=== PATIENT | female | born 1985 ===

== ENCOUNTER 2017-05-27 23:52 | Inpatient (IN) | payer OTHER ==
[2017-05-28 00:30] VITALS: BMI 26.9
[2017-05-28] MEDS ORDERED: Zolpidem Tartrate 5 MG TAB PO PRN (00:47)
[2017-05-28] MEDS ORDERED: LR / Pitocin 40 units/1000 ml 1,000 ML IV PRN (00:47)
[2017-05-28] MEDS ORDERED: Acetaminophen/Codeine 30-300mg Tablet PO PRN (00:47)
[2017-05-28] MEDS ORDERED: Ondansetron HCl/PF 4 MG/2 ML Vial IVP PRN ×2 (00:47→02:44)
[2017-05-28] MEDS ORDERED: Promethazine HCl 25 MG/ML VIAL IM PRN ×2 (00:47→02:44)
[2017-05-28] MEDS ORDERED: Docusate 100 MG CAP PO PRN (00:47)
[2017-05-28] MEDS ORDERED: Lidocaine 1% (PF) 30 ML VIAL SC PRN (00:47)
[2017-05-28] MEDS: Lactated Ringer's 1,000 ML IV SCH ×3 (01:00→08:08)
[2017-05-28 01:25] LABS: Hemoglobin 11.7 g/dL (12.0-16.0); Mean Corpuscular Hemoglobin 30.7 pg (27.0-31.0); Mean Corpuscular Volume 90.2 fl (81.0-99.0); Mean Platelet Volume 7.5 fL (7.4-10.4); Platelet Count 220 thou/uL (130-400); RBC Distribution Width 12.9 % (11.5-14.5); Red Blood Cell (RBC) Count 3.82 mill/uL (4.20-5.40); White Blood Cell (WBC) Count 15.1 thou/uL (4.8-10.8)
[2017-05-28] MEDS ORDERED: Naloxone HCl 0.4 mg/ml Vial IV PRN (01:28)
[2017-05-28 01:56] LABS: HBSAg Index 0.27 S/CO (0-0.99); Hep B Surf Ag Non-Reactive S/CO (NonReactive)
[2017-05-28] MEDS ORDERED: diphenhydrAMINE 50 MG/ML VIAL IVP PRN (02:44)
[2017-05-28] MEDS ORDERED: ePHEDrine/0.9% NaCl/PF SYRINGE 50 mg/10 ml SLOW IVP PRN (02:44)
[2017-05-28] MEDS ORDERED: Lactated Ringer's 500 ML IV PRN (02:44)
[2017-05-28] MEDS ORDERED: Naloxone HCl 0.4 mg/ml Vial IVP PRN ×2 (02:44)
[2017-05-28] MEDS ORDERED: Eucerin (Mineral Oil/Petrolatum,White) 30 gm Jar TOP PRN (02:44)
[2017-05-28] MEDS ORDERED: Acetaminophen 325 MG TAB PO PRN (02:44)
[2017-05-28] MEDS ORDERED: Fentanyl 4mcg/Marcaine 0.1% Cassette 100 ML EPIDURAL SCH (02:45)
[2017-05-28] MEDS ORDERED: Communication Order-Pharmacy FS SCH (02:45)
[2017-05-28] MEDS: Fentanyl 4 mcg/Marc 0.1% Cadd 100 ML in Premix Bag 1 BAG EPIDURAL SCH ×2 (03:55→08:03)
--- NOTE | 2017-05-28 04:09 | HP ---
ESTABLISHED OB PHYSICIAN: Dr. Aviva Ness. CHIEF COMPLAINT: Ruptured membranes with contractions. HISTORY OF PRESENT ILLNESS: Ms. Damon is a 31-year-old white G4, P2-0-1-2 with an estimated date o f confinement of 05/30/2017, who presents to labor and delivery tonight complaining of ruptured membr anes at approximately 10:45. She reports that the fluid is clear. She also now is experiencing asso ciated contractions, which she says are every 5-7 minutes. She denies vaginal bleeding, fever, chill s, nausea or vomiting. OBSTETRIC HISTORY: Her care has been uncomplicated with Dr. Ness. She has had 2 vaginal deliverie s, both weighing 7 pounds 15 ounces. She has also had a single 7-week loss. Her care of th is has been uncomplicated. PAST MEDICAL HISTORY: Unremarkable. PAST SURGICAL HISTORY: [place] teeth. SOCIAL HISTORY: She denies tobacco, alcohol, or drug use. REVIEW OF SYSTEMS: GENERAL: She appears well in no acute distress. She denies shortness of breath, chest pain, fever, chills, nausea or vomiting. PHYSICAL EXAMINATION: VITAL SIGNS: Stable and she is afebrile. LUNGS: Her chest is clear to auscultation. CARDIOVASCULAR: Regular rate and rhythm. ABDOMEN: Soft, nontender and gravid. PELVIC: By labor nurse shows the cervix to be 5 cm dilated. She is grossly ruptured. heart r ate tracing shows stable heart rate with good [id number] variability. She is brandt laura ry 5-7 minutes. ASSESSMENT: Term intrauterine with ruptured membranes in labor. PLAN: At this time, I have notified Dr. Ness of the patient's situation here in labor and delivery . She will be monitored for progress at this time. She would like an epidural and we will help her with this. Vaginal delivery is anticipated. She will be watched closely.
[2017-05-28 07:01] LABS: Syphilis Antibody Nonreactive (Nonreactive); Syphilis Antibody Index 0.03 S/CO (<1.00 Non-Reactive)
[2017-05-28] MEDS ORDERED: Bupivacaine 20 ML, Fentanyl 400 MCG in Sodium Chloride 0.9% 72 ML EPIDURAL SCH (07:30)
[2017-05-28] MEDS ORDERED: LR 500 ML/Oxytocin 10 units 500 ML ONE (08:15)
--- NOTE | 2017-05-28 09:34 | PDOC.OPDEL ---
OB Operative/Delivery Note Delivery Dr/Surgeon: Thi Pre-Delivery Diagnosis: active labor Procedure/Post Delivery Dx: spontaneous vaginal delivery Weeks gestation: 39 Anesthesia: epidural - Findings A Sex: male - 1 min: 8 - 5 min: 9 - Additional Findings/Plan Placenta delivered: spontaneous Repaired Obstetrical Laceration: none Estimated blood loss: 200ml Compilations/Other Findings: none Post delivery plan: routine recovery
[2017-05-28] MEDS ORDERED: Milk Of Magnesia 30 ML UDCUP PO PRN (09:35)
[2017-05-28] MEDS ORDERED: diphenhydrAMINE 25 MG CAP PO PRN (09:35)
[2017-05-28] MEDS ORDERED: Benzocaine/Menthol 20-0.5% 60 ML CAN TOP PRN (09:35)
[2017-05-28] MEDS ORDERED: Preparation H Ointment 28 GM TUBE PR PRN (09:35)
[2017-05-28] MEDS ORDERED: Adacel (T-DAP) 0.5 ML VIAL IM ONE (09:35)
[2017-05-28] MEDS ORDERED: Bisacodyl 10 MG SUPP PR PRN (09:35)
[2017-05-28] MEDS ORDERED: LR / Pitocin 40 units/1000 ml 1,000 ML IV SCH (09:45)
[2017-05-28] MEDS ORDERED: Misoprostol 200 MCG TAB VAG SCH (09:45)
[2017-05-28] MEDS: Ibuprofen 800 MG TAB PO SCH ×2 (14:00→21:14)
[2017-05-28] MEDS: Ferrous Sulfate 325 MG TAB PO SCH (15:55)
[2017-05-28] MEDS: Docusate Calcium (SURFAK) 240 MG CAP PO SCH (21:14)
[2017-05-29] MEDS: traMADol HCl 50 MG TAB PO PRN ×2 (00:51→10:15)
--- NOTE | 2017-05-29 06:23 | PDOC.PP ---
Post Progress Note Post Day #: 1 Subjective: Doing well. . PO intake tolerated: yes Flatus: yes Ambulation: yes Vital Signs (12 hours) Temp Pulse Resp BP Pulse Ox 05/29/17 03:55 97.9 F 73 16 105/57 L 05/29/17 00:45 98.1 F 61 16 101/58 L 05/28/17 19:45 98.0 F 68 16 105/54 L 98 Weight Weight 157 lb - Physical Examination General: NAD Cardiovascular: no m/r/g Respiratory: clear to auscultation bilaterally Abdominal: + bowel sounds Extremities: negative homans (B) Neurological: no gross focal deficits Psychiatric: A&Ox3 Result Diagrams: 05/28/17 01:08 Additional Labs: Post Labs Hep Bs Antigen Non-Reactive S/CO (NonReactive) 05/28/17 01:08 (1) Vaginal delivery Status: Acute - Assessment/Plan Multigravida, doing well. Plan for dsch today (PPD 1) at 1600 when she will be over 24 hours. Baby in room breastfeeeding and doing well. Nursery made aware of plan for dsch. Circ pending. Home with motrin.
[2017-05-29] MEDS: Ibuprofen 800 MG TAB PO SCH ×2 (06:25→13:44)
--- NOTE | 2017-05-29 06:27 | PDOC.EVN ---
Event Note - Event Note Event Note: DISCHARGE SUMMARY Procedure: Vaginal Delivery Diagnosis: multigravida Routine Admit date: 05/27/2017 Discharge date: 05/29/2017 (PPD 1) Patient was admitted as a multigravida in labor. Progressed to by Dr Ness. Routine PP care.
[2017-05-29 08:39] VITALS: BP 111/59; TEMP 97.8
[2017-05-29] MEDS: Docusate Calcium (SURFAK) 240 MG CAP PO SCH (08:42)
[2017-05-29] MEDS: Ferrous Sulfate 325 MG TAB PO SCH (08:43)
[2017-05-29] MEDS ORDERED: Prenatal Vitamin 1 TAB PO SCH (09:00)
== END 2017-05-29 15:45 | disposition home or self-care (01) | DRG 775 ==
LOC: L&D/OP 23:52 → L&D 05-28 00:47 → 3SW 05-28 12:15
PROVIDERS: ADMIT Obstetrics & Gynecology; ATTEND Obstetrics & Gynecology
PROC: 10E0XZZ Delivery of Products of Conception, External Approach (ICD-10-PCS; principal; 2017-05-28)
DX: O80 Encounter for full-term uncomplicated delivery (principal); Z3A.39 39 weeks gestation of pregnancy; Z37.0 Single live birth
CPT/HCPCS: 51702; 85027; 86780; 87340; 99285; J2405; J3010; J3490; J7050; J7120